=== PATIENT | male | born 1980 | race Caucasian/White ===

== ENCOUNTER 2019-11-01 21:36 | Emergency (ER) | payer OTHER ==
[2019-11-01] MEDS ORDERED: Adacel (T-DAP) 0.5 ML SYRINGE ONE (21:54)
[2019-11-01] MEDS ORDERED: Lidocaine 2% PF 5 ML VIAL ONE ×2 (22:31→22:32)
[2019-11-01] MEDS ORDERED: Triple Antibiotic Oint 1 GM Packet ONE (22:51)
== END 2019-11-01 23:03 | disposition home or self-care (01) ==
LOC: BURERS 21:36
DX: S56.127A Laceration of flexor muscle, fascia and tendon of right little finger at forearm level, initial encounter (principal); W26.0XXA Contact with knife, initial encounter; Y92.009 Unspecified place in unspecified non-institutional (private) residence as the place of occurrence of the external cause
CPT/HCPCS: 12001; 90715; J2001; Q4049